=== PATIENT | female | born 1990 | race African-American/Black ===

== ENCOUNTER 2022-07-20 12:36 | Emergency (ER) | payer OTHER ==
[2022-07-20 13:12] VITALS: BP 118/74; PULSE 80; RESP 18; TEMP 97.9; BMI 24.1
[2022-07-20] MEDS ORDERED: SODIUM CHLORIDE 0.9% 500 ML INFUS.BAG IV ONE (13:58)
[2022-07-20 14:48] LABS: BASO % 0.7 % (0-2.0); EOS % 2.7 % (0-4.5); HEMATOCRIT 39.1 % (32.4-45.2); HEMOGLOBIN 13.2 GM/dL (10.7-15.3); LYMPH % 30.9 % (8-40); MCH 30.6 pg (25.7-33.7); MCHC 33.9 g/dl (32.0-36.0); MEAN CELL VOLUME 90.2 fl (80-96); MEAN PLT VOLUME 9.4 fl (7.5-11.1); NEUT % 50.7 % (42.8-82.8); PLATELET COUNT 188 10^3/uL (134-434); RBC 4.33 M/mm3 (3.60-5.2); RDW 12.5 % (11.6-15.6); WHITE BLOOD COUNT 5.7 K/mm3 (4.0-10.0)
[2022-07-20 14:59] LABS: EPI CELLS >36 /uL (0-25.1); HYALINE CASTS 5 /uL (0-3.1); PH,URINE 5.5 (5.0-8.0); URINE APPEARANCE CLOUDY; URINE BACTERIA 266 /uL (0-1359); URINE BILIRUBIN NEGATIVE (NEGATIVE); URINE COLOR DK YELLOW; URINE GLUCOSE (UA) NEGATIVE (NEGATIVE); URINE KETONE 1+ (NEGATIVE); URINE LEUK ESTERASE TRACE (NEGATIVE); URINE NITRITE NEGATIVE (NEGATIVE); URINE PROTEIN 1+ (NEGATIVE); URINE RBC 23 /uL (0-23.9); URINE WBC 19 /uL (0-25.8)
[2022-07-20 15:24] LABS: CALCIUM 9.8 mg/dL (8.5-10.1)
[2022-07-20 15:25] LABS: ALBUMIN 4.1 g/dl (3.4-5.0); BLOOD UREA NITROGEN 10.4 mg/dL (7-18)
[2022-07-20 15:28] LABS: CREATININE 0.7 mg/dL (0.55-1.3)
[2022-07-20 15:29] LABS: BILIRUBIN,TOTAL 0.4 mg/dL (0.2-1)
[2022-07-20 15:30] LABS: TOT PROT 7.9 g/dl (6.4-8.2)
== END 2022-07-20 16:23 | disposition home or self-care (01) ==
LOC: JER 12:36 → JERFT 12:36
DX: O26.891 Other specified pregnancy related conditions, first trimester (principal); Z3A.01 Less than 8 weeks gestation of pregnancy
CPT/HCPCS: 36415; 76817-TC; 80053; 81003; 83690; 84702; 85025; 86850; 86900; 86901; 87086; 87491; 87591; 99284-25